=== PATIENT | female | born 1930 | race Caucasian/White ===

== ENCOUNTER 2017-04-15 13:34 | Inpatient (IN) ==
[2017-04-15] MEDS ORDERED: QUELICIN IV ONE (13:39)
[2017-04-15] MEDS ORDERED: AMIDATE IV ONE (13:39)
[2017-04-15] MEDS ORDERED: AMIDATE ONE (13:40)
[2017-04-15] MEDS ORDERED: QUELICIN ONE (13:40)
[2017-04-15] MEDS ORDERED: ASPIRIN PO STA (14:07)
[2017-04-15] MEDS ORDERED: DIPRIVAN 1% 1,000 MG/100 ML BOTTLE IV SCH (14:08)
--- NOTE | 2017-04-15 14:25 | Diag Imaging Result Doc PS360 ---
EXAM: CHEST-PORTABLE HISTORY: UNRESPONSIVE TECHNIQUE: AP portable supine at 1340. Not completed until 1420 COMMENT: The pulmonary vascularity is prominent. There are no abnormal fluid collections. There is borderline cardiomegaly. Compared to 04/26/2015 considering differences in inspiration there has been very little change. IMPRESSION: Possibility of mild pulmonary edema cannot be excluded. Electronically signed by Jarvis Mortensen 04/15/2017 2:23 PM
--- NOTE | 2017-04-15 14:27 | Diag Imaging Result Doc PS360 ---
EXAM: CHEST/ABD TUBE PLACEMENT HISTORY: TUBE PLACEMENT TECHNIQUE: AP supine portable at 1410 COMMENT: There is an endotracheal tube approximately 3 cm above the amada and an NG tube with its tip in the stomach. The inspiration is slightly better than on the previous study of 1340. Otherwise has been no significant change. IMPRESSION: Borderline cardiomegaly and pulmonary vascular engorgement. Questionable interstitial edema. Electronically signed by Jarvis Motrensen 04/15/2017 2:25 PM
[2017-04-15 14:29] LABS: BASO% 0.5 % (0.0-0.8); EOS% 0.9 % (0.0-10.0); HEMATOCRIT 36.2 % (37.0-47.0); HEMOGLOBIN 12.3 g/dL (12.0-16.0); IMM GRAN# 0.27 X1000 (0.0-0.04); IMM GRAN% 2.5 % (0.0-0.5); LYMPH# 3.58 X1000 (1.2-3.4); LYMPH% 33.6 % (20.5-51.1); MANUAL DIFF NEEDED? YES; MCH 36.1 PG (27-31); MCV 106.2 FL (81-99); MONO# 1.07 X1000 (0.11-0.59); MPV 10.4 FL (7.4-10.4); NEUT% 52.5 % (42.2-75.2); PLT 179 X1000 (130-400); RBC 3.41 XMIL (4.2-5.4)
--- NOTE | 2017-04-15 14:29 | EKG Report ---
Test Performed on : 04/15/2017 1:51:15 PM Test Reason : Chest Pain Blood Pressure : / mmHG Vent. Rate : 067 BPM Atrial Rate : 067 BPM P-R Int : 210 ms QRS Dur : 150 ms QT Int : 464 ms P-R-T Axes : 030 -81 011 degrees QTc Int : 490 ms Sinus rhythm. with 1st degree AV block. Right bundle branch block Left anterior fascicular block Bifascicular block Anterolateral infarct (cited on or before 26-JUL-2008) Abnormal ECG When compared with ECG of 22-APR-2015 12:38, Questionable change in initial forces of Anterolateral leads T wave inversion no longer evident in Anterior leads Unconfirmed Result
[2017-04-15 14:35] LABS: INR 1.02; PROTIME 10.7 Seconds (9.2-11.7); PTT 29.2 Seconds (22.0-36.0)
[2017-04-15 14:46] LABS: ALBUMIN 3.9 g/dL (3.5-5.0); CALCIUM 9.4 mg/dL (8.8-10.2); MAGNESIUM 1.9 mg/dL (1.5-2.7); POTASSIUM 4.1 mmol/L (3.5-5.1); TOTAL BILIRUBIN 0.45 mg/dL (0.20-1.00); TOTAL PROTEIN 7.3 g/dL (6.3-8.3)
--- NOTE | 2017-04-15 14:53 | Diag Imaging Result Doc PS360 ---
EXAM: HEAD W/O CONTRAST HISTORY: pain TECHNIQUE: CT of the head without contrast COMMENT: There is generalized cerebral atrophy. There is calcification in the posterior lateral right frontal lobe which was also present at the time the previous study of 04/22/2015. There is extensive periventricular and subcortical white matter lucency in both hemispheres consistent with chronic microvascular disease. This was also present previously. The visualized paranasal sinuses are clear. The calvarium is intact. IMPRESSION: Stable CT of the head. Chronic ischemic microvascular changes. Electronically signed by Jarvis Mortensen 04/15/2017 2:50 PM
[2017-04-15] MEDS ORDERED: LASIX IV ONE (15:12)
--- NOTE | 2017-04-15 15:23 | PROVIDER DOCUMENTATION ---
This chart was entered by Nila Ramirez Scribe, acting as scribe for Enrique Coffey MD. HPI-Cardiopulmonary Arrest - General Chief Complaint: Full Arrest Stated Complaint: SOB Time Seen by Provider: 04/15/17 13:55 Source: EMS Allergies/Adverse Reactions: Allergies Allergy/AdvReac Type Severity Reaction Status Date / Time codeine [Codeine] Allergy Severe NAUSEA/VOMI Verified 04/15/17 14:45 TING meperidine HCl * Allergy Severe NAUSEA/VOMI Verified 04/15/17 14:45 [From Demerol] TING morphine Allergy Severe NAUSEA/VOMI Verified 04/15/17 14:45 TING Penicillins Allergy Severe RASH Verified 04/15/17 14:45 Sulfa (Sulfonamide Allergy Severe RASH Verified 04/15/17 14:45 Antibiotics) [Sulfa(Sulfonamide Antibiotics)] Home Medications: Home Medication List Medication Instructions Recorded Confirmed Last Taken Type Brimonidine 0.15% Ophth Soln 1 drop RIGHT EYE BID 10/21/12 04/15/17 04/21/15 History [Alphagan P 0.15% Ophth Soln] Acetaminophen [Tylenol] 325 mg PO 4XDAY PRN PRN #0 tablet 01/23/14 04/15/17 Unknown Rx Aspirin 81 mg PO MoWeFr #0 chewtab 01/23/14 04/15/17 04/20/15 Rx Calcium Carbonate [Caltrate 600] 600 mg PO DAILY #0 tablet 01/23/14 04/15/1704/30 Rx Carvedilol [Coreg] 25 mg PO BID #0 tablet 01/23/14 04/15/17 04/21/15 Rx Folic Acid 1 mg PO DAILY #0 tablet 01/23/14 04/15/17 04/21/15 Rx Latanoprost 0.005% Oph Soln 0 ml BOTH EYES HS #0 btl 01/23/14 04/15/17 04/21/15 Rx [Xalatan 0.005% Oph Soln] Levothyroxine [Synthroid] 50 microgm PO ACB #0 tablet 01/23/14 04/15/17 Rx Alendronate [Fosamax] 70 mg PO ORDERED 05/21/14 04/15/17 04/15/15 History Buspirone [Buspar] 15 mg PO BID 05/21/14 04/15/17 04/21/15 History Clonidine [Catapres] 0.1 mg PO Q6H PRN PRN 05/21/14 04/15/17 11/26/14 History Multivitamin [Multivitamins] 1 each PO DAILY 05/21/14 04/15/17 04/21/15 History Ubidecarenone [Coenzyme Q10] 100 mg PO BID 05/21/14 04/15/17 04/21/15 History Allopurinol 300 mg PO BID 11/26/14 04/15/17 04/21/15 History Amlodipine [Norvasc] 2.5 mg PO DAILY 11/26/14 04/15/17 04/21/15 History Atorvastatin Calcium [Lipitor] 20 mg PO DAILY 11/26/14 04/15/17 04/21/15 History Clonidine Patch [[id number]-9] 1 patch TD DIRECTED 11/26/14 04/15/17 History Irbesartan 300 mg PO DAILY 11/26/14 04/15/17 04/21/15 History Isosorbide Mononitrate [Isosorbide 30 mg PO QHS 11/26/14 04/15/17 04/21/15 History Mononitrate ER] Quetiapine [Seroquel] 50 mg PO QHS 11/26/14 04/15/17 04/21/15 History [place]-3 Fatty Acids/Fish Oil [Fish 1 each PO DAILY 04/22/15 04/15/17 04/21/15 History Oil 1,000 mg Softgel] Diazepam [Valium] 2 mg PO BID PRN PRN #0 04/26/15 04/15/17 04/21/15 Rx Bisacodyl [Dulcolax] 10 mg PO Q6H PRN PRN 04/15/17 04/15/17 Unknown History Hydrocortisone Acetate [Proctosert 30 mg RC BID 04/15/17 04/15/17 Unknown History Hc] Risperidone [Risperdal] 0.5 mg PO QHS 04/15/17 04/15/17 Unknown History - History of Present Illness-C/P Arrest Initial Comments: Pt is 86 y/o F presents to the ED with cardiopulmonary arrest. EMS states Pt was at lunch and was eating shrimp and got chocked. EMS states Pt was down for 2 minutes and CPR was started on arrival and CPR lasted 3 minutes and EMS states pulse return. EMS removed shrimp from throat. EMS states IO placed in L shoulder and 1 epi was given. Pt was given etomidate at 1347 and succ at 1348. Pt was intubated at 1351. Reason for Code Blue?: full arrest Witnessed arrest?: Yes Bystander CPR?: No CPR initiated before doctor arrival?: Yes Down-time before ACLS?: see above (2 minutes) Initial Findings: no respirations, no pulse Treatment initiated prior to doctor arrival?: Initiated CPR/thumper (CPR), Initiated epinephrine #mg (1) Similar Symptoms Previously?: No Recently seen or treated by another doctor?: No - Pre-hospital Treatment EMS Initial Findings:: no respirations Pre-hospital Treatment: Initiated CPR, Initiated epinephrine Review of Systems - Adult - REVIEW OF SYSTEMS - ADULT Constitutional: reports: no symptoms reported Eyes: reports: no symptoms reported Ears, Nose, Mouth & Throat: reports: no symptoms reported Cardiovascular: reports: no symptoms reported Respiratory: reports: shortness of breath, other (respiratory distress). denies : cough, wheezing Gastrointestinal: reports: no symptoms reported Genitourinary: reports: no symptoms reported Musculoskeletal: reports: no symptoms reported Integumentary: reports: no symptoms reported Neurological: reports: no symptoms reported Psychiatric: reports: no symptoms reported Endocrine: reports: no symptoms reported Hematologic/Lymphatic: reports: no symptoms reported Allergic/Immunologic: reports: no symptoms reported All Other Systems: Reviewed and Negative Past History - Adult - PAST MEDICAL HISTORY-ADULT Review of Records: reports: Nursing Assessment Review, Medications Reviewed, Social history reviewed & non-contributory. Major Childhood Illnesses: reports: denies history Cardiovascular: reports: HTN, hyperlipidemia Respiratory: reports: denies history Gastrointestinal: reports: GERD Obstetrical/Gynecological: reports: denies history Genitourinary: reports: kidney disease Musculoskeletal: reports: arthritis Neurological: reports: dementia, TIA Psychiatric: reports: bipolar Endocrine/Immune: reports: thyroid disorder (thyroid disease) Other Conditions: reports: denies history, other (Lupus) - PRIOR SURGERIES/PROCEDURES Surgical/Procedure History: reports: appendectomy, joint replacement, other ( total hip replacement) - IMMUNIZATION STATUS Childhood Immunizations: See Nurse Assessment Flu Vaccine: See Nurse Assessment - FAMILY HISTORY Family History: reviewed, not pertinent - SOCIAL HISTORY Smoking: quit greater than 1 year, cigarettes Substance Use: alcohol Alcohol Use Frequency: every day Number of drinks per typical drinking period:: 2 drinks Living Situation: family Physical Exam-General - PHYSICAL EXAM-ADULT Initial Vital Signs Reviewed: Yes - CONSTITUTIONAL General Appearance: alert, moderate distress - EYES Eyes: PERRL/EOMI, pink conjunctivae - HEAD, EARS, NOSE, MOUTH & THROAT HENMT: normocephalic/atraumatic, moist mucous membranes, normal ENT inspection - NECK Neck: non-tender, full range of motion, supple, normal inspection - RESPIRATORY Respiratory: chest non-tender, respiratory distress, stridor, retractions, increased rate - CARDIOVASCULAR Cardiovascular: normal peripheral pulses, regular rate, rhythm - GASTROINTESTINAL (ABDOMEN) Abdominal Exam: normal bowel sounds, non tender, soft - LYMPHATIC Lymphatic: no adenopathy - MUSCULOSKELETAL Back Exam: normal inspection, no CVA tenderness, no vertebral tenderness Extremity: normal range of motion, non-tender - SKIN Integumentary: normal color, normal turgor, warm/dry - NEUROLOGIC Neurologic: grossly normal - PSYCHIATRIC Psych/Mental Status: disoriented x 3 Progress - PLAN OF CARE/RESULTS Progress/Plan/Lab Results: Vital Signs - 8 hr 04/15/17 13:43 04/15/17 13:46 04/15/17 13:49 Temperature Pulse Rate 86 77 71 Respiratory Rate 26 H 21 12 Blood Pressure 183/104 154/91 133/79 O2 Sat by Pulse Oximetry 97 99 04/15/17 13:50 04/15/17 13:57 04/15/17 14:00 Temperature Pulse Rate 75 68 69 Respiratory Rate 27 H 11 L 22 Blood Pressure 143/75 119/70 143/79 O2 Sat by Pulse Oximetry 97 99 99 04/15/17 14:05 04/15/17 14:39 04/15/17 14:45 Temperature Pulse Rate 75 69 Respiratory Rate 12 17 Blood Pressure 143/75 126/58 O2 Sat by Pulse Oximetry 98 100 94 L 04/15/17 14:46 04/15/17 15:09 Temperature 98.0 F Pulse Rate 71 65 Respiratory Rate 18 19 Blood Pressure 110/57 91/47 O2 Sat by Pulse Oximetry 93 L 100 Laboratory Results - last 24 hr 04/15/17 04/15/17 04/15/17 13:44 13:44 13:44 WBC 10.67 RBC 3.41 L Hgb 12.3 Hct 36.2 L MCV 106.2 H MCH 36.1 H MCHC 34.0 RDW Std Deviation 13.2 Plt Count 179 MPV 10.4 Immature Gran % (Auto) 2.5 H Neut % (Auto) 52.5 Lymph % (Auto) 33.6 [place] % (Auto) 10.0 H Eos % (Auto) 0.9 Baso % (Auto) 0.5 Immature Gran # (Auto) 0.27 H Neut # (Auto) 5.60 Lymph # (Auto) 3.58 H [place] # (Auto) 1.07 H Eos # (Auto) 0.10 Baso # (Auto) 0.05 Segmented Neutrophils Cancelled Band Neutrophils Cancelled Lymphocytes Cancelled Monocytes Cancelled Eosinophils Cancelled Basophils Cancelled Metamyelocytes Cancelled Myelocytes Cancelled Promyelocytes Cancelled Nucleated RBCs Cancelled Atypical Lymphocytes Cancelled Blast Cells Cancelled Hypochromia Cancelled Vacuolization Cancelled Toxic Granulation Cancelled Dohle Bodies Cancelled Large Platelets Cancelled Polychromasia Cancelled Poikilocytosis Cancelled Basophilic Stippling Cancelled Anisocytosis Cancelled Microcytosis Cancelled Macrocytosis Cancelled Spherocytes Cancelled Sickle Cells Cancelled Target Cells Cancelled Ovalocytes Cancelled Stomatocytes Cancelled [place] Bodies Cancelled Halie Cells Cancelled Unidentified Cells Cancelled Schistocytes Cancelled PT INR PTT (Actin FS) Sodium 136 Potassium 4.1 Chloride 96 L Carbon Dioxide 22 L Anion Gap 18 BUN 26 H Creatinine 1.1 H Estimated GFR/1.73 m2 47 BUN/Creatinine Ratio 24 Glucose 132 H Calculated Osmolality 279 Calcium 9.4 Magnesium 1.9 Total Bilirubin 0.45 AST 38 H ALT 21 Alkaline Phosphatase 102 Creatine Kinase 65 Troponin T Saa-C-Hswkpfafsfr Pept 2412 H Total Protein 7.3 Albumin 3.9 Globulin 3.4 Albumin/Globulin Ratio 1.1 04/15/17 04/15/17 13:44 13:44 WBC RBC Hgb Hct MCV MCH MCHC RDW Std Deviation Plt Count MPV Immature Gran % (Auto) Neut % (Auto) Lymph % (Auto) [place] % (Auto) Eos % (Auto) Baso % (Auto) Immature Gran # (Auto) Neut # (Auto) Lymph # (Auto) [place] # (Auto) Eos # (Auto) Baso # (Auto) Segmented Neutrophils Band Neutrophils Lymphocytes Monocytes Eosinophils Basophils Metamyelocytes Myelocytes Promyelocytes Nucleated RBCs Atypical Lymphocytes Blast Cells Hypochromia Vacuolization Toxic Granulation Dohle Bodies Large Platelets Polychromasia Poikilocytosis Basophilic Stippling Anisocytosis Microcytosis Macrocytosis Spherocytes Sickle Cells Target Cells Ovalocytes Stomatocytes [place] Bodies Halie Cells Unidentified Cells Schistocytes PT 10.7 INR 1.02 PTT (Actin FS) 29.2 Sodium Potassium Chloride Carbon Dioxide Anion Gap BUN Creatinine Estimated GFR/1.73 m2 BUN/Creatinine Ratio Glucose Calculated Osmolality Calcium Magnesium Total Bilirubin AST ALT Alkaline Phosphatase Creatine Kinase Troponin T < 0.010 Aci-W-Cwodgfaboch Pept Total Protein Albumin Globulin Albumin/Globulin Ratio Orders Category Date Time Status Cardiac Monitoring DIRECTED Care 04/15/17 14:07 Active Restraint/Seclusion Initiat NV NOW Care 04/15/17 15:10 Active Saline Loc NOW Care 04/15/17 14:07 Active CHEST-PORTABLE [RAD] Stat Exams 04/15/17 13:38 Completed CHEST/ABD TUBE PLACEMENT [RAD] Stat Exams 04/15/17 13:51 Completed HEAD W/O CONTRAST [CT] Stat Exams 04/15/17 14:09 Completed CBC WITH ELECTRONIC DIFF [HEME] Stat Lab 04/15/17 13:44 Completed CK PROFILE [SP CHEM] Stat Lab 04/15/17 13:44 Completed COMPREHENSIVE METABOLIC PANEL [CHEM] Stat Lab 04/15/17 13:44 Completed MAGNESIUM [CHEM] Stat Lab 04/15/17 13:44 Completed PRO B-NATRIURETIC PEPTIDE Stat Lab 04/15/17 13:44 Completed PROTIME WITH INR [COAG] Stat Lab 04/15/17 13:44 Completed PTT [COAG] Stat Lab 04/15/17 13:44 Completed TROPONIN T Stat Lab 04/15/17 13:44 Completed Aspirin Med 04/15/17 14:07 Discontinued 325 mg PO STAT STA Etomidate [Amidate] Med 04/15/17 13:39 Discontinued 20 mg IV NOW ONE Etomidate [Amidate] Med 04/15/17 13:40 Discontinued 40 mg .ROUTE .STK-MED ONE Furosemide [Lasix] Med 04/15/17 15:12 Once 100 mg IV NOW ONE Propofol [Diprivan 1%] Med 04/15/17 14:08 Active 1,000 mg in 100 ml IV Per Protocol Succinylcholine [Quelicin] Med 04/15/17 13:39 Discontinued 100 mg IV NOW ONE Succinylcholine [Quelicin] Med 04/15/17 13:40 Discontinued 200 mg .ROUTE .STK-MED ONE EKG [EKG] Stat Ther 04/15/17 14:07 Draft Result Diagrams: 04/15/17 13:44 04/15/17 13:44 - EKG 1 Time of EKG reading by physician:: 13:51 EKG Read and Signed by:: Enrique Coffey EKG Interpretation (*Must complete 3 of following elements*): Abnormal ( anterolateral infarct, age undetermined) Rate: 67 Rhythm: sinus rhythm with 1st degree AV block Comments: RBBB; left anterior fascicular block; bifascicular block - XRAY 1 XRAY Study: Chest Impression: Abnormal XRAY Interpretation: possibilty of mild pulmonary edema cannot be excluded 2 XRAY Study: Chest, Abdomen (tube placement) Impression: Abnormal (questionable interstitial) XRAY Interpretation: borderline cardiomegaly and pulmonary vascular engorgement - CT/MRI 1 CT Study: Head Impression: Abnormal CT Results: stable CT of the head; chronic ischemic microvascular changes Procedures - INTUBATION Time of Intubation: 13:51 Airway Evaluation: Copious Secretions Mallampati Class: 3 Intubation Method: orotracheal Equipment: ETT Tube Size (cm): 7.5 Pretreated with 100% Oxygen?: Yes Breath Sounds after Intubation: equal ETT Primary Tube Confirmation: Capnometry CO2 Change, Chest Rise and Fall, Tube placement verified on XRAY, Placement re-confirmed with CXR after reposition Intubation Complications: no complications Vent Settings: See Respiratory Therapy Notes Departure - Departure Date of Disposition Decision: 04/15/17 Time of Disposition Decision: 15:15 DIAGNOSIS: Pulmonary edema, Respiratory distress Disposition: ADMITTED INPATIENT 09 Certified Medical Emergency: Emergent Condition: Critical Additional Freetext Instructions: ED Follow Up Instructions: You have been treated by a care provider in the Emergency Department. These instructions are being provided to you so you can have an understanding of how to care for yourself upon discharge. Upon discharge from the Emergency Department, you are responsible for making arrangements for follow-up care by a physician of your choice. Take all prescribed medications as directed. Return to the Emergency Department immediately for any new or worsening symptoms. You may call the Physician Referral phone number at [phone] to obtain a list of Physicians who are taking new patients. Referrals and Follow-Ups: Sameer Light MD [Primary Care Provider] - - Critical Care Note This patient required my direct & personal management of CC.: Yes Total Time (mins): 90 Critical Care Statement: This patient required my direct personal management to treat or rule out processes, the absence of which, could potentiallly result in sudden, clinically significant life or limb threatening deterioration. Attestation - Physician/ MO Attestation The physician spent face to face time with patient:: Yes Advanced Practice Provider documentation review:: The physician spent face to face time with this patient and agrees with all MLP documentation, treatment, and medical decision making by the MLP. See provider notes for further information. This chart was documented by the indicated scribe, (Nila Ramirez Scribe) and accurately reflects the services I performed and decisions made by , Enrique Coffey MD, as attested by the provider's signature.
[2017-04-15 15:51] LABS: ALLEN TEST YES; BE -1.3 mmoll (-3.0-3.0); BLOOD TYPE ARTERIAL; DRAW SITE L RADIAL; METHB 0.9 % (0.0-1.5); O2(CT) 17.7 mL/dL (15.0-23.0); PCO2(98.6) 35 mmHg (35-45); PO2(98.6) 275 mmHg (60-100); SAMPLE BLOOD; SAO2 98.9 % (95.0-100.0); SRATE 15 BPM; THB 12.4 g/dL (11.5-17.4); TVOL 500 mL; pH(98.6) 7.42 (7.35-7.45)
[2017-04-15 15:53] LABS: MODALITY VENTILATOR
[2017-04-15] MEDS ORDERED: CLINDAMYCIN 300 MG in NS 50 ML IV ONE (16:32)
[2017-04-15] MEDS ORDERED: FLAGYL 500 MG/NS 500 MG/100 ML IVPB IV ONE (16:32)
[2017-04-15] MEDS: DIPRIVAN 1% 1,000 MG/100 ML BOTTLE IV SCH ×2 (20:33→23:47)
--- NOTE | 2017-04-15 21:50 | HISTORY AND PHYSICAL ---
CHIEF COMPLAINT: Cardiac arrest. HISTORY OF PRESENT ILLNESS: This 86-year-old, white female, was out to eat dinner with her family. She was eating some type of shrimp dish and became choked. The family did not immediately realize this, but when they did, performed a Heimlich maneuver which ejected 1 shrimp from her throat, but this did not clear her airway. She continued to have problems and eventually was laid down on the ground. contract post office clerk arrived and were able to remove another shrimp from her airway. They then started IVs and apparently on monitor, her heart had stopped. Once they secured her airway and gave her IV fluids and 1 round of drugs, I believe her heart started back. I do not have the documents in front of me, but gathered this from talking with the patient's family and with the ER doctor earlier today. From the sources I spoke to, they felt that she was only down and/or not breathing on her own for 2-3 minutes. The contract post office clerk luckily were very close by when the call came in. The patient was not intubated in the in the field according to the emergency room physician, but he intubated her later due to airway protection issues. PAST MEDICAL HISTORY: 1. Temporal arteritis and PMR (remote history). 2. 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 3. Degenerative arthritis. 4. Fibrocystic disease of breasts. 5. Hypertension. 6. Osteoporosis. 7. Hyperlipidemia. 8. Chronic right bundle branch block. 9. Bipolar disorder. 10. History of alcoholism. ALLERGIES: Sulfa, penicillin and narcotics. SOCIAL HISTORY: The patient lives in an assisted living situation and today was out with family. She is a nonsmoker. She drinks alcohol regularly, the amount is unknown, but his it has been surmised that she has been an alcoholic for a number of years. FAMILY HISTORY: Noncontributory. REVIEW OF SYSTEMS: Patient is incapable of review of systems. In speaking with the patient's daughter, she had been in good health and good mood for the recent past and had no ongoing complaints. PHYSICAL EXAMINATION: GENERAL: The patient is on propofol, but is not completely sedated. She is in the ICU lying in the bed. She has her eyes open. She does track us around the room. If we bring her attention to us, she does shake her head in affirmation to questions. NECK: Unremarkable. LUNGS: Clear to auscultation in all kidd. There are no wheezes or rales. There are no crackles noted. CARDIOVASCULAR: Regular rhythm at approximately 60 beats per minute. ABDOMEN: Shows bowel sounds are present. EXTREMITIES: No peripheral edema. LABORATORIES: White cell count 10.6, ABG was 742, 35, 275 on the ventilator. Creatinine is 1.1. Glucose 132, proBNP was 2412. ASSESSMENT AND PLAN: 1. The patient will be admitted to the ICU. She will remain on the ventilator overnight. We will titrate her propofol sedation a little higher so that she can get some rest. We will recheck labs and x-rays in the morning. If all is clear and she has not spiked a fever or had any type of downturn, we will attempt extubation. If she seems to have any difficulty, likely will call in a software configuration specialist to help us out. 2. The patient will be placed on Levaquin and Flagyl as antibiotic coverage for aspiration. 3. The patient is on a host of home medications, all of which will be held until she is extubated. We will monitor other parameters and make adjustments as necessary. cc: Sameer Light MD MTDD
[2017-04-15] MEDS: FLAGYL 250 MG/NS 250 MG/50 ML IVPB IV SCH (23:45)
[2017-04-15] MEDS: LEVAQUIN 500 MG/D5W 500 MG/100 ML IVPB IV SCH (23:45)
[2017-04-16 04:53] LABS: ALLEN TEST YES; BLOOD TYPE ARTERIAL; DRAW SITE R RADIAL; METHB 1.1 % (0.0-1.5); O2(CT) 16.7 mL/dL (15.0-23.0); PCO2(98.6) 37 mmHg (35-45); PO2(98.6) 78 mmHg (60-100); SAMPLE BLOOD; SAO2 96.8 % (95.0-100.0); SRATE 15 BPM; THB 12.5 g/dL (11.5-17.4); TVOL 400 mL; pH(98.6) 7.48 (7.35-7.45)
[2017-04-16 04:55] LABS: MODALITY VENTILATOR
[2017-04-16] MEDS: FLAGYL 250 MG/NS 250 MG/50 ML IVPB IV SCH ×4 (05:00→22:55)
[2017-04-16 05:52] LABS: MANUAL DIFF NEEDED? NO
[2017-04-16 06:01] LABS: BASO% 0.2 % (0.0-0.8); EOS# 0.15 X1000 (0.0-0.7); EOS% 1.5 % (0.0-10.0); HEMATOCRIT 31.1 % (37.0-47.0); HEMOGLOBIN 10.7 g/dL (12.0-16.0); LYMPH# 1.01 X1000 (1.2-3.4); LYMPH% 9.8 % (20.5-51.1); MCHC 34.4 g/dL (33-37); MCV 104.7 FL (81-99); MONO# 1.42 X1000 (0.11-0.59); MONO% 13.8 % (1.7-9.3); MPV 10.6 FL (7.4-10.4); NEUT% 74.7 % (42.2-75.2); PLT 135 X1000 (130-400); RBC 2.97 XMIL (4.2-5.4)
[2017-04-16 06:21] LABS: POTASSIUM 3.1 mmol/L (3.5-5.1)
[2017-04-16] MEDS ORDERED: POTASSIUM CHLORIDE 20 MEQ/SWI 20 MEQ/100 ML IVPB IV SCH (07:00)
--- NOTE | 2017-04-16 07:02 | Diag Imaging Result Doc PS360 ---
EXAM: CHEST-PORTABLE HISTORY: ETT TECHNIQUE: Erect AP portable at 0520 COMMENT: There is an endotracheal tube slightly below the thoracic inlet and an NG tube which passes below the diaphragm. The inspiration is less optimal than on 04/15/2017, otherwise has been no appreciable change. IMPRESSION: Stable chest. Electronically signed by Jarvis Mortensen 04/16/2017 6:59 AM
--- NOTE | 2017-04-16 08:30 | PROGRESS NOTE ---
DATE: 04/16/2017 SUBJECTIVE: The patient is sedated and on the ventilator all night and there were no particular problems overnight. OBJECTIVE: 97.4, 56, 15, 132/53, 96% saturated on 40% mechanical ventilation. OBJECTIVE: General: The patient is sedated at the time of my examination. Lungs: Coarse breath sounds in both upper lobes but I do not hear any distinct rales in these areas. Cardiovascular: Regular bradycardia at 60 beats per minute. She appears have a right bundle on the monitor. LABORATORY: White cell count was 10.32, hemoglobin 10.7, hematocrit 31.1. She has a high MCV. ABG from this morning was 7.48, CO2 37, O2 of 78, again 97% saturated on 40% FiO2 ventilator assist control mode. Electrolytes showed a potassium dropping to 3.1, creatinine 1.1. ASSESSMENT AND PLAN: 1. The patient remains sedated on the ventilator. Her chest x-ray this morning did not show any change from admission. She is being treated for aspiration pneumonitis. Although this has not developed clinically or on x-ray. I am going to consult Dr. Hector Jimenez for ventilator management. Hopefully, we can get her off this ventilator today or in the shortest possible time frame. 2. Laboratory from this morning was reasonably good. We will replete her potassium. I have also ordered a CK and troponin for this morning which are not back yet. 3. Hopefully, we can loosen the reins of sedation and see what she can do on her own. I will leave that decision making to the critical care unit nurse. 4. I will speak to the family following my examination and dictation. cc: Sameer Light MD
[2017-04-16] MEDS: DIPRIVAN 1% 1,000 MG/100 ML BOTTLE IV SCH (08:39)
[2017-04-16 08:56] LABS: CK INDEX 1.7 (0.0-2.5); CK-MB 6.91 ng/mL (0.0-5.0)
[2017-04-16] MEDS ORDERED: POTASSIUM CHLORIDE 20 MEQ/SWI 20 MEQ/100 ML IVPB IV ONE (09:00)
--- NOTE | 2017-04-16 09:39 | CONSULTATION ---
DATE OF CONSULTATION: 04/16/2017 CONSULTATION REQUESTED: Pulmonary consultation. REQUESTING PHYSICIAN: Dr. Sameer Light REASON FOR CONSULTATION: Status post cardiopulmonary arrest. HISTORY OF PRESENT ILLNESS: Ms. Willams is an 86-year-old white female, with a 20 pack year history for tobacco (nonsmoker for several years), who was eating with family when she apparently choked. The Heimlich maneuver was performed and patient expelled a shrimp, but her airway was not completely cleared. EMS was called and she did require a short course of CPR by report. The EMS was nearby. Actual times have not been available for review. Additional airway clearance was required. The patient was intubated in the emergency room for airway protection. She may she was following commands according to documentation in the chart. PAST MEDICAL HISTORY: 1. Bipolar disorder. 2. Possible stroke. 3. History of temporal arteritis. 4. History of lupus. 5. Hypertension. 6. Osteoporosis. 7. History of alcoholism. 8. Allergy to sulfa, penicillin and narcotics. SOCIAL HISTORY: Patient lives in assisted living. Prior tobacco use. Chart indicates she drinks at least 1 alcoholic beverage per week. FAMILY HISTORY: Noncontributory. REVIEW OF SYSTEMS: Limited due to current status. PHYSICAL EXAMINATION: General: Reveals an elderly white female, who appears her stated age. When her propofol is discontinued, she does arouse and follows simple commands. Vital Signs: Blood pressure 132/53, heart rate 56, respiration rate 15, oxygen saturation 96%. HEENT: Pupils are equal and reactive. Oropharynx is clear. Neck: Supple. Chest: Reveals occasional rhonchi bilaterally without wheezing or tactile fremitus. Cardiac: Decreased rate regular rhythm. Abdomen: Soft without hepatosplenomegaly. Extremities: Without significant edema. LABORATORIES: Sodium 140, potassium 3.1, chloride 99, bicarbonate 26, BUN 31, creatinine 1.1. Troponin is negative. CK slightly elevated at 395 but CPK index is negative. Chest x-ray on admission yesterday revealed possible mild edema with borderline cardiomegaly. Chest x-ray today has not significantly changed. IMPRESSION: An 86-year-old white female, prior tobacco use, status post cardiopulmonary arrest following airway obstruction due to food. The patient did undergo the Heimlich maneuver along with CPR. Hemodynamically, she is stable. She has had a slight drop in hemoglobin. She appears to be neurologically intact at this juncture. The patient had hypoxemic and hypercapnic respiratory failure associated with a cardiopulmonary event. RECOMMENDATIONS: 1. Spontaneous breathing trial now to assess extubation status. 2. Followup hemoglobin later today to ensure she does not have an unknown bleed, such as hepatic laceration or splenic injury. cc: MD Sameer Barrow MD
[2017-04-16 09:41] LABS: ALLEN TEST NO; BE 4.1 mmoll (-3.0-3.0); BLOOD TYPE ARTERIAL; DRAW SITE R BRACHIAL; METHB 0.7 % (0.0-1.5); O2(CT) 14.5 mL/dL (15.0-23.0); PCO2(98.6) 41 mmHg (35-45); PO2(98.6) 63 mmHg (60-100); SAMPLE BLOOD; SAO2 94.5 % (95.0-100.0); THB 11.1 g/dL (11.5-17.4); pH(98.6) 7.45 (7.35-7.45)
[2017-04-16 09:42] LABS: MODALITY VENTILATOR
[2017-04-16] MEDS ORDERED: OFIRMEV 1000 MG/ISOTONIC SOLN 1,000 MG/100 ML BOTTLE IV ONE (10:45)
--- NOTE | 2017-04-16 11:28 | Diag Imaging Result Doc PS360 ---
EXAM: CHEST-PORTABLE HISTORY: dyspnea TECHNIQUE: AP upright portable at 1119 COMMENT: There is left ventricular enlargement. There is prominence of the central pulmonary vascularity. The endotracheal tube which was previously present on the examination at 0520 is been removed as has the NG tube. Considering differences in technique and inspiration there has been no significant change. The left lower lobe appears clearer as the inspiration is slightly better. IMPRESSION: Cardiomegaly and pulmonary vascular engorgement. Electronically signed by Jarvis Mortensen 04/16/2017 11:26 AM
--- NOTE | 2017-04-16 11:41 | CONSULTATION ---
DATE OF CONSULTATION: 04/16/2017 HISTORY OF PRESENT ILLNESS: An 86-year-old lady, who was admitted with shrimp which put her into respiratory distress and she choked. Continued to have problems. EMT arrived at the scene and were able to remove the shrimp. Once her IV was secured, IV fluids were given. She lost pulse for 2-3 minutes and received a couple doses of epinephrine and CPR was performed. Restored within 4 minute and she was intubated. Today at the time of my examination she was just extubated. She says she feels weak, does not hurt anywhere. History was obtained from the chart. PAST MEDICAL HISTORY: 1. Temporal arteritis. 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 3. Degenerative joint disease. 4. Fibrocystic breast disease. 5. Hypertension. 6. Osteoporosis. 7. Right bundle branch block. 8. Bipolar disorder. 9. History of alcohol abuse. 10. Bipolar depression. ALLERGIES: Allergic to sulfonamides, penicillin and narcotics. SOCIAL HISTORY: Patient lives in the assisted living. FAMILY HISTORY: Noncontributory. REVIEW OF SYSTEMS: At the time, patient is slightly groggy. Does not complain of chest pain. Detailed review of systems could not be obtained. PHYSICAL EXAMINATION: Vital Signs: Blood pressure was 151/71. Cardiovascular System: Normal jugular venous pressure. First and second heart sounds heard. There was no S3 gallop. Respiratory System: Scattered wheeze, guttural sounds. Abdomen: Soft, nontender. Central nervous system: Sedated. Could not assess completely, but she was moving all 4 extremities. HOME MEDICATIONS: 1. Eye drops. 2. Aspirin. 3. Calcium carbonate. 4. Coreg 25 mg p.o. b.i.d. 5. Folic acid. 6. Levothyroxine 50. 7. Clonidine 0.1 p.r.n. 8. Buspirone 15 p.o. b.i.d. 9. Fosamax 70. 10. Avapro 300 mg. 11. Isosorbide mononitrate 30. 12. Allopurinol 300. 13. Atorvastatin 20. 14. Amlodipine 2.5. 15. Seroquel 100. 16. Diazepam. 17. Risperdal. 18. Bisacodyl. LABS AND X-RAYS: 1. Cardiac enzymes: First set of cardiac enzymes were negative. Second set of cardiac enzymes: Troponin was negative and CK was 395 with an MB of 6. 2. Chest x-ray is unremarkable. 3. Electrocardiogram: Normal sinus rhythm, right bundle branch block. ASSESSMENT AND PLAN: Ms. Yamileth Willams is an 86-year-old, lady, who choked while she was eating shrimp. EMT was called. Subsequently had a cardiac arrest requiring cardiopulmonary resuscitation. Per standard protocol, she was intubated and just extubated. From a cardiac standpoint: 1. We will get an echocardiogram to assess cardiac and valvular function. 2. We will get another set of cardiac enzymes. 3. We will plan for a Cardiolite stress test to assess and rule out for ischemia. 4. As far as the etiology is concerned, she choked on the shrimp and probably caused her the arrest. However, she was successfully resuscitated and she was extubated today. Given her age, we need to make sure she does not have any ischemia. We will also make sure that 2 other sets of cardiac enzymes are negative. 5. She has some wheeze. Chest x-ray was unremarkable. We will get a chest x-ray tomorrow to make sure there is no airspace disease as well. 6. For hypertension, we will continue with home medications once she can take tablets by mouth. Thank you for the consult. We will follow hospital course. cc: MD Sameer Harrison MD
[2017-04-16 12:19] LABS: MANUAL DIFF NEEDED? NO
[2017-04-16 12:21] LABS: BASO% 0.2 % (0.0-0.8); EOS# 0.12 X1000 (0.0-0.7); EOS% 0.9 % (0.0-10.0); HEMATOCRIT 34.1 % (37.0-47.0); HEMOGLOBIN 11.8 g/dL (12.0-16.0); IMM GRAN# 0.04 X1000 (0.0-0.04); IMM GRAN% 0.3 % (0.0-0.5); LYMPH# 0.94 X1000 (1.2-3.4); LYMPH% 6.7 % (20.5-51.1); MCH 36.2 PG (27-31); MCHC 34.6 g/dL (33-37); MCV 104.6 FL (81-99); MONO# 1.33 X1000 (0.11-0.59); MONO% 9.5 % (1.7-9.3); MPV 9.9 FL (7.4-10.4); NEUT% 82.4 % (42.2-75.2); PLT 136 X1000 (130-400); RBC 3.26 XMIL (4.2-5.4)
[2017-04-16 13:16] LABS: CK INDEX 1.2 (0.0-2.5); CK-MB 6.8 ng/mL (0.0-5.0)
[2017-04-16] MEDS: OFIRMEV 1000 MG/ISOTONIC SOLN 1,000 MG/100 ML BOTTLE IV PRN ×2 (17:15→22:55)
--- NOTE | 2017-04-16 18:58 | ECHO REPORT ---
ORDER DATE: 04/16/2017 INTERPRETING PHYSICIAN: Dr. Odom REQUESTING PHYSICIAN: CLINICAL INDICATIONS: An 86-year-old female with hypertension, hyperlipidemia, abnormal EKG, cardiac arrest. This study was technically difficult. Parasternal views are very limited. M-MODE MEASUREMENTS: Right ventricle: cm. Left ventricle end diastole: cm. Left ventricle end systole: cm. Posterior wall: cm. Interventricular septum: cm. Left atrium: cm. Aortic root: cm. SUMMARY OF 2-DIMENSIONAL IMAGING: The left ventricle shows hyperdynamic contractility. Ejection fraction appears to be in the order of 75-80%. No wall motion abnormality is noted. The right ventricle is not dilated. The aortic valve is calcified and it showed restricted opening. Continuous wave Doppler across this valve shows a maximum gradient of 37 mmHg, mean gradient 20 mmHg. Color flow mapping shows a mild degree of regurgitation. This would suggest a itnp-yj-bjzuptms degree of aortic stenosis. The mitral annulus shows dense calcification. Leaflets of the mitral valve are limited or restricted. They are calcified. The maximum gradient across the mitral valve is 28 mmHg, mean gradient is 12 mmHg. The valve area of the mitral valve is about 1.1 cm squared, suggesting moderate mitral stenosis. Color flow mapping of the mitral valve indicates a svzo-nu-iijwygbk degree of regurgitation. The tricuspid valve shows a fkcx-un-hnpikmsw degree of regurgitation. Pulmonary pressure estimated to be somewhere in the range of 56 mmHg. The pulmonic valve was not well visualized. There is no pericardial effusion, masses or thrombus. IMPRESSION: In summary, this echocardiogram is limited. The left ventricular ejection fraction is hyperdynamic. Ejection fraction 75-80%. There is a moderate degree of mitral stenosis with a wiht-td-osaynibh degree of mitral regurgitation. Mitral valve area 1.1 cm squared. There is also a moderate degree of aortic stenosis with a mild degree of aortic regurgitation. The mean gradient is 28 mmHg. There is mild pulmonary hypertension estimated at 53 mmHg. No pericardial effusion noted. Clinical correlation is strongly recommended. cc: MD Jennifer Hebert PA Timothy P. Weirich, MD
[2017-04-16 20:23] LABS: CK-MB 5.42 ng/mL (0.0-5.0)
[2017-04-16] MEDS: LEVAQUIN 500 MG/D5W 500 MG/100 ML IVPB IV SCH (22:55)
[2017-04-17] MEDS: OFIRMEV 1000 MG/ISOTONIC SOLN 1,000 MG/100 ML BOTTLE IV PRN ×2 (04:37→17:09)
[2017-04-17] MEDS: FLAGYL 250 MG/NS 250 MG/50 ML IVPB IV SCH ×3 (04:56→17:09)
[2017-04-17] MEDS ORDERED: TYLENOL PO PRN (09:16)
[2017-04-17] MEDS: ASPIRIN PO SCH (09:33)
[2017-04-17] MEDS: NORVASC PO SCH (09:34)
[2017-04-17] MEDS: ZYLOPRIM PO SCH (09:34)
[2017-04-17] MEDS: COREG PO SCH ×2 (09:34→21:30)
--- NOTE | 2017-04-17 09:40 | PROGRESS NOTE ---
DATE: 04/17/2017 SUBJECTIVE: The patient is sitting in the bed. She is on a humidified oxygen mask although she is not desaturated. It was reported to me by the nursing staff that she had some rales this morning and had a deep suction and seems to be better. The rales seemed to be more consistent with upper airway noise. The patient states that she is doing fine. She is responding a little bit more slowly than her baseline but is otherwise in reasonable shape. Further workup from the cardiology consult due to elevated CK and troponin are going to follow today. OBJECTIVE: Vital Signs: Temperature 98.68, pulse 81, respirations 24, blood pressure 148/66. General: She is a well-developed, white female, in no acute distress. Lungs: The patient's lung kidd are clear to auscultation. Heart: Her cardiovascular exam shows a regular rhythm with what appears to be a right bundle or at least interventricular conduction delay on the monitor. She is in no distress. She is alert, oriented, conversive and appropriate although she is responding a little bit more slowly and her voice is weak compared to her baseline. LABORATORY: White cell count yesterday was 14,000. Her last measured CK is 558 with a troponin 0.018. ASSESSMENT AND PLAN: 1. The patient has been seen by cardiology. She is likely stable for the floor CICU, but will need some pretty high-intensity attention. In that regard, I think I would prefer CICU to the floor. There is a perfusion scan that is pending but there was some difficulty in possibly getting her positioned on the table for a stable scan, and it is up in the air whether that will get done today or not. The remainder of her vital signs and other parameters are very good. I do not have a chest x-ray from this morning. 2. I plan to reintroduce the patient's oral medications and we will move forward from there upon recommendations of our consultants. cc: Sameer Light MD
--- NOTE | 2017-04-17 11:14 | EKG Report ---
Test Performed on : 04/17/2017 05:51:24 AM Test Reason : cardiac arrest Blood Pressure : / mmHG Vent. Rate : 081 BPM Atrial Rate : 081 BPM P-R Int : 252 ms QRS Dur : 158 ms QT Int : 454 ms P-R-T Axes : 058 -81 027 degrees QTc Int : 527 ms Sinus rhythm. with 1st degree AV block. Left axis deviation Right bundle branch block Inferior infarct , age undetermined Anterolateral infarct (cited on or before 26-JUL-2008) Abnormal ECG When compared with ECG of 15-APR-2017 13:51, Left anterior fascicular block is no longer present Questionable change in initial forces of Lateral leads Confirmed by Damir CHANDLER, Darvin Espino ([id number]) on 04/18/2017 1:15:30 PM
--- NOTE | 2017-04-17 13:11 | Diag Imaging Result Doc PS360 ---
CHEST-PORTABLE - 04/17/2017 INDICATION: Resp Failure TECHNIQUE: COMPARISON: 04/16/2017 FINDINGS: There is significant worsening alveolar infiltrate throughout the right upper lobe. There is some worsening infiltrate at the right base as well. Stable cardiomegaly. Pulmonary vascularity is grossly normal. No pneumothorax or significant effusion. IMPRESSION: 1. Worsening alveolar infiltrates throughout the right lung concerning for pneumonia or aspiration. 2. Cardiomegaly. Electronically signed by Alfredo Bruno 04/17/2017 1:08 PM
[2017-04-17] MEDS ORDERED: NS 500 ML IV ONE (17:29)
[2017-04-17] MEDS: NS 1,000 ML IV SCH (18:00)
[2017-04-17] MEDS: BUSPAR PO SCH (21:30)
[2017-04-17] MEDS: LIPITOR PO SCH (21:30)
[2017-04-18] MEDS: OFIRMEV 1000 MG/ISOTONIC SOLN 1,000 MG/100 ML BOTTLE IV PRN ×3 (02:31→23:33)
[2017-04-18] MEDS: FLAGYL 250 MG/NS 250 MG/50 ML IVPB IV SCH ×4 (02:32→20:17)
[2017-04-18] MEDS: LEVAQUIN 500 MG/D5W 500 MG/100 ML IVPB IV SCH ×2 (02:32→23:21)
[2017-04-18] MEDS: NS 1,000 ML IV SCH (03:16)
[2017-04-18 06:07] LABS: MANUAL DIFF NEEDED? NO
[2017-04-18] MEDS: SYNTHROID PO SCH (06:17)
[2017-04-18 06:41] LABS: BASO% 0.1 % (0.0-0.8); EOS# 0.02 X1000 (0.0-0.7); EOS% 0.2 % (0.0-10.0); HEMATOCRIT 31.5 % (37.0-47.0); HEMOGLOBIN 10.8 g/dL (12.0-16.0); IMM GRAN# 0.03 X1000 (0.0-0.04); IMM GRAN% 0.2 % (0.0-0.5); LYMPH% 7.7 % (20.5-51.1); MCHC 34.3 g/dL (33-37); MONO# 1.59 X1000 (0.11-0.59); MONO% 12.3 % (1.7-9.3); MPV 10.8 FL (7.4-10.4); NEUT% 79.5 % (42.2-75.2); PLT 141 X1000 (130-400)
[2017-04-18 07:24] LABS: CALCIUM 7.9 mg/dL (8.8-10.2); MAGNESIUM 1.9 mg/dL (1.5-2.7); POTASSIUM 3.4 mmol/L (3.5-5.1)
--- NOTE | 2017-04-18 08:29 | Diag Imaging Result Doc PS360 ---
EXAM: CHEST-PORTABLE INDICATION: abnormal exam TECHNIQUE: One view COMPARISON: None. FINDINGS: The patient is rotated toward the right. The infiltrate at the right upper lung zone is probably stable to marginally improved given differences in rotation. The right basilar infiltrate is approximately stable. No definite new consolidations are appreciated. Cardiac silhouette is stable. IMPRESSION: Approximately stable right lung infiltrates given differences in positioning. Electronically signed by Sebastián Lopez 04/18/2017 8:27 AM
[2017-04-18] MEDS: COREG PO SCH ×2 (09:10→20:15)
[2017-04-18] MEDS: BUSPAR PO SCH ×2 (09:11→20:16)
[2017-04-18] MEDS: NORVASC PO SCH (09:18)
[2017-04-18] MEDS: ZYLOPRIM PO SCH (09:20)
[2017-04-18] MEDS ORDERED: LASIX IV ONE (09:35)
--- NOTE | 2017-04-18 12:10 | PROGRESS NOTE ---
DATE: 04/18/2017 SUBJECTIVE: Ms. Willams reports she is somewhat short of breath. She is not particularly verbal this morning. She nods her heat appropriately to questioning. PHYSICAL EXAMINATION: Vital signs: She is afebrile. Heart rate of 80. Blood pressure is 140/65. General: She is in no acute distress. Cardiovascular: She sounds to be in a regular rate and rhythm. She has a 2/6 systolic murmur that seems holosystolic and is best heard at the left lower sternal border. She has no lower extremity edema. Chest: Exam sounds relatively clear, no increased work of breathing. She has poor inspiratory effort. Abdomen: Soft, nontender, nondistended. She has no obvious organomegaly. PERTINENT DATA: White count is 12.9, hematocrit is 31.5. Her platelet count is 141. Her sodium is 139, potassium is 3.4, BUN is 50, creatinine is 1.8. BUN and creatinine are up from 31 and 1.1 yesterday. ASSESSMENT: Status post cardiac arrest secondary to aspiration event and choking. PLAN: Her renal function appears somewhat worsened today. Overall, her I's and O's appear positive roughly 500 mL or so. Her chest x-ray does not appear to be consistent with pulmonary edema. She does have some echo findings consistent with mitral stenosis, mitral regurgitation, and moderate aortic stenosis, but I do not believe these are clinically significant at this time. Her ejection fraction appears normal. Tentative plans are for myocardial perfusion imaging on Thursday per Dr. Mccabe's recommendations. I have no acute recommendations presently. cc: MD Sameer Johnston MD
[2017-04-18] MEDS: D5 1/2 NS 1,000 ML IV SCH ×2 (12:31→20:18)
[2017-04-18] MEDS: CLINDAMYCIN 600 MG/NS 600 MG/50 ML IVPB IV SCH ×2 (12:31→20:16)
[2017-04-18] MEDS: LIPITOR PO SCH (20:15)
[2017-04-19] MEDS: FLAGYL 250 MG/NS 250 MG/50 ML IVPB IV SCH ×4 (03:24→21:10)
[2017-04-19] MEDS: CLINDAMYCIN 600 MG/NS 600 MG/50 ML IVPB IV SCH ×3 (04:24→21:45)
[2017-04-19 04:27] LABS: ALLEN TEST YES; BE -3.3 mmoll (-3.0-3.0); BLOOD TYPE ARTERIAL; DRAW SITE R RADIAL; METHB 1.1 % (0.0-1.5); O2(CT) 17.1 mL/dL (15.0-23.0); PCO2(98.6) 40 mmHg (35-45); PO2(98.6) 104 mmHg (60-100); SAMPLE BLOOD; SAO2 98.3 % (95.0-100.0); THB 12.5 g/dL (11.5-17.4); pH(98.6) 7.35 (7.35-7.45)
[2017-04-19 04:29] LABS: MODALITY BI PAP
[2017-04-19 05:50] LABS: ALBUMIN 2.7 g/dL (3.5-5.0); CALCIUM 7.4 mg/dL (8.8-10.2); MAGNESIUM 1.9 mg/dL (1.5-2.7); POTASSIUM 3.2 mmol/L (3.5-5.1); TOTAL BILIRUBIN 0.4 mg/dL (0.20-1.00); TOTAL PROTEIN 5.6 g/dL (6.3-8.3)
[2017-04-19] MEDS: SYNTHROID PO SCH (07:25)
--- NOTE | 2017-04-19 08:14 | Diag Imaging Result Doc PS360 ---
EXAM: CHEST-PORTABLE INDICATION: abnormal exam TECHNIQUE: One view COMPARISON: 04/18/2017 FINDINGS: The right upper lung zone infiltrate appears somewhat less prominent than the previous study. The right basilar infiltrate is essentially stable. No new consolidations are appreciated. There is suggestion of a right pleural fluid collection that may be slightly larger than the previous study. Cardiac silhouette is stable. IMPRESSION: 1.Probably marginal improvement of the mild right upper lobe infiltrate but stable right basilar infiltrate. 2.Likely slight increase in the small right pleural effusion. Electronically signed by Sebastián Lopez 04/19/2017 8:11 AM
[2017-04-19] MEDS: COREG PO SCH ×2 (09:44→21:09)
[2017-04-19] MEDS: BUSPAR PO SCH ×2 (09:45→21:08)
[2017-04-19] MEDS: NORVASC PO SCH (09:45)
[2017-04-19] MEDS: ZYLOPRIM PO SCH (09:46)
[2017-04-19] MEDS ORDERED: LASIX IV ONE (10:06)
[2017-04-19] MEDS: POTASSIUM CHLORIDE 20 MEQ/SWI 20 MEQ/100 ML IVPB IV SCH ×2 (10:36→13:14)
--- NOTE | 2017-04-19 10:59 | PROGRESS NOTE ---
DATE: 04/19/2017 SUBJECTIVE: The patient apparently had a rough time overnight with her breathing. Her oxygen saturation was lower and she is on a nonrebreather. They have had to do some NT suction to help clear secretions. She generally is not swallowing well. She generally starts coughing when she is swallowing. I had a long talk with the patient's daughter and son-in-law. OBJECTIVE: Vital Signs: 99.4, 65, 14, 120/53. Patient is 96-99% saturated on 100% nonrebreather. Physical Examination: General: Patient's eyes are open and she is awake. She will respond to questions and seems to comprehend certain aspects of her treatment but does not have any memory of recent events. She is unclear on whether she would like to be put back on the ventilator if necessary. I do not think she understands with that is. Her 2 children have dual power of attorney general and unfortunately, they are in disagreement as to whether the patient should go back on the ventilator or not. The patient appears to have paradoxical diaphragmatic movement and has a rattly insufficient cough which sounds very wet. Lungs: Examination of the lungs did not reveal any overt active wheezing or rales in the right upper lobe. Most of the noise is upper airway in nature. Cardiovascular: Irregular at approximately 70 beats per minute at the time of my examination. Extremities: Showed no peripheral edema. Neurological: From a neurological standpoint, as stated, the patient is awake. She is alert. She is responsive. She is generally appropriate but seems to lack some insight into the gravity of her position. Laboratory: ABG 7.35, PC02 of 40, PO2 104, 98% saturated on 60% FiO2, BiPAP at 16 and 5. Potassium is 3.2, BUN is 57, creatinine 1.9. ASSESSMENT AND PLAN: 1. The patient's respiratory status is tenuous. The family is in disagreement as to whether she should be put back on the ventilator should that become necessary. It is my feeling that she will continue to spiral downhill and it is a pretty good likelihood that she will suffer respiratory failure which would be catastrophic in the event that we do not put her back on the ventilator. The patient's daughter is clearly not in favor of putting her on the ventilator and the patient's son apparently is in favor. 2. Due to positive fluid balance over the last couple days, I am going to give her another small dose of Lasix to see if we can stimulate some diuresis as I am sure this is contributing a little bit to the problems. I think her primary problem is inability to protect her airway and repeated insults to the airway and right upper lobe causing a pneumonitis. We will continue antibiotics and check laboratories again in the morning. 3. The patient's cardiovascular status has still not been completely resolved to the workup. She still has not had a Lexiscan. Echocardiogram at the time of admission showed good ejection fraction and valve function. 4. The patient's swallowing difficulty and overall neurological status begs to question of whether she suffered a stroke at the time of her arrest. It would be nice to be able to get a CT scan, but with her tenuous respiratory status, I do not feel comfortable putting her on the CT table to find that out. We will defer further workup on that until she has a more stable respiratory status. 5. The patient's acute decompensation of her renal function will continue to be followed. She did have a fairly marked could fluid balance which was positive over the last 2 days. She has not responded to diuretics, and BUN and creatinine are climbing. We will continue to monitor. cc: Sameer Light MD
[2017-04-19] MEDS: DUONEB (A & A) INH PRN ×3 (11:03→19:48)
[2017-04-19] MEDS: CLINIMIX E 4.25%-5% SOLUTION 1,000 ML IV SCH (13:00)
--- NOTE | 2017-04-19 13:27 | PROGRESS NOTE ---
DATE: 04/19/2017 SUBJECTIVE: Ms. Willams seems to have a clinical deterioration since yesterday. Her respiratory status has worsened and she is currently on non-rebreather. OBJECTIVE: Vital Signs: She has been afebrile. Her heart rate presently is in the 60s to 70s and her blood pressure is 128/53. General: She is in no acute distress. She is not really responding to any verbal stimuli or mild physical stimuli. Cardiovascular: She sounds to be in a regular rate and rhythm. I do not hear any murmurs. Chest: Has coarse breath sounds bilaterally but more severely course on the right side. She has no increased work of breathing. Abdomen: Soft, nontender, nondistended. No obvious organomegaly. PERTINENT DATA: She has an ABG today showing a pH of 7.35, pCO2 of 40, PO2 of 104. That gives her an AA gradient of 274 which is up from 171 yesterday. Her sodium is 137, potassium 3.2. Her BUN is 57 with a creatinine of 1.9 which is roughly stable from yesterday and seems to be above her baseline. She had a chest x-ray which demonstrated what appeared to be marginal improvement of the mild right upper lobe infiltrate and stable right basilar infiltrate and a possible small increase in the small right pleural effusion. ASSESSMENT: Status post cardiac arrest. Probably likely secondary to an aspiration event that she incurred. PLAN: She continues to deteriorate clinically. She does not seem to have reason to deteriorate from a respiratory standpoint from volume overload. Her EF is normal and her chest x-ray is not suggesting pulmonary edema. Her echo showed a normal EF. It does not appear that she is clinically stable enough to have a nuclear scan and I do not feel that she had an ischemic event resulting in her cardiac arrest from the historical findings. For now, we will continue to follow along. I will discontinue the order for the stress test in the morning as clinically she is not able to follow through with that. cc: MD Sameer Johnston MD
[2017-04-19] MEDS ORDERED: CETACAINE SPRAY ONE (15:58)
[2017-04-19] MEDS: LIPITOR PO SCH (21:08)
[2017-04-19] MEDS: LEVAQUIN 500 MG/D5W 500 MG/100 ML IVPB IV SCH (23:15)
[2017-04-20] MEDS: CLINIMIX E 4.25%-5% SOLUTION 1,000 ML IV SCH ×2 (02:10→13:59)
[2017-04-20] MEDS: FLAGYL 250 MG/NS 250 MG/50 ML IVPB IV SCH ×4 (03:12→20:24)
[2017-04-20] MEDS: DUONEB (A & A) INH PRN ×5 (07:44→22:42)
--- NOTE | 2017-04-20 08:04 | Diag Imaging Result Doc PS360 ---
CHEST-PORTABLE - 04/20/2017 INDICATION: aspiration pneumonitis TECHNIQUE: COMPARISON: 04/19/2017 FINDINGS: There is slight worsening infiltrate at the right upper lobe. Otherwise diffuse infiltrate throughout the right lung. Stable cardiomegaly. There are pleural effusions bilaterally. These appear stable from prior. IMPRESSION: Slight worsening infiltrate or atelectasis at the right upper lobe. Other findings are stable from prior. Electronically signed by Alfredo Bruno 04/20/2017 8:01 AM
[2017-04-20 08:06] LABS: ALLEN TEST YES; BE -2.6 mmoll (-3.0-3.0); BLOOD TYPE ARTERIAL; DRAW SITE R RADIAL; PCO2(98.6) 43 mmHg (35-45); PO2(98.6) 120 mmHg (60-100); SAMPLE BLOOD; pH(98.6) 7.34 (7.35-7.45)
[2017-04-20 08:10] LABS: BASO% 0.2 % (0.0-0.8); EOS# 0.16 X1000 (0.0-0.7); EOS% 1.3 % (0.0-10.0); HEMATOCRIT 28.9 % (37.0-47.0); IMM GRAN# 0.06 X1000 (0.0-0.04); IMM GRAN% 0.5 % (0.0-0.5); LYMPH# 1.19 X1000 (1.2-3.4); LYMPH% 9.6 % (20.5-51.1); MANUAL DIFF NEEDED? YES; MCH 36.5 PG (27-31); MCHC 34.6 g/dL (33-37); MCV 105.5 FL (81-99); MONO# 1.87 X1000 (0.11-0.59); MONO% 15.1 % (1.7-9.3); MPV 10.9 FL (7.4-10.4); NEUT% 73.3 % (42.2-75.2); PLT 175 X1000 (130-400); RBC 2.74 XMIL (4.2-5.4)
[2017-04-20 08:20] LABS: ALBUMIN 2.6 g/dL (3.5-5.0); CALCIUM 7.9 mg/dL (8.8-10.2); POTASSIUM 4.6 mmol/L (3.5-5.1); TOTAL BILIRUBIN 0.33 mg/dL (0.20-1.00); TOTAL PROTEIN 5.7 g/dL (6.3-8.3)
[2017-04-20 08:28] LABS: EOS 4 % (1-10); LYMPHS 12 % (21-51); MONO 16 % (1-9)
[2017-04-20] MEDS: NORVASC PO SCH (08:46)
[2017-04-20] MEDS: ZYLOPRIM PO SCH (08:47)
[2017-04-20] MEDS: ASPIRIN PO SCH (08:47)
[2017-04-20] MEDS: BUSPAR PO SCH ×2 (08:47→20:24)
[2017-04-20] MEDS: COREG PO SCH ×2 (08:47→20:24)
[2017-04-20] MEDS: SYNTHROID PO SCH (09:19)
[2017-04-20] MEDS: CLINDAMYCIN 600 MG/NS 600 MG/50 ML IVPB IV SCH ×3 (09:19→20:24)
[2017-04-20 09:43] LABS: MODALITY BI PAP
--- NOTE | 2017-04-20 09:52 | PROGRESS NOTE ---
DATE: 04/20/2017 SUBJECTIVE: The patient is on BiPAP and sleeping. I spoke with her son, Newton. Overnight, there has been no significant downturn. She has been relatively comfortable on the BiPAP, oxygenating well, and there were no other complaints voiced by family members and no other concerns voiced by the nursing staff. OBJECTIVE: Vital Signs: 99.2, 74, 13, 145/58. She is 100% saturated on BiPAP at 100% FiO2 and a pressure of 16/5. Ins and Outs: Positive 635. Physical Examination: Lungs: Patient's lungs are clear. There is no wheezing. Her work of breathing appears to be less. Cardiovascular: Regular at 73. Extremities: Show no peripheral edema. Neurologic: I did not wake the patient to check her mental status as I wanted her to rest. Laboratories: White cell count is 12.4, hematocrit 28.9. For some reason, I do not have an ABG from this morning. BUN is elevated at 73, creatinine 1.7, blood sugar 118. ASSESSMENT AND PLAN: 1. The patient's aspiration pneumonitis continues. There has really been no significant change in the x-ray in about 3 days, as I see it. She is oxygenating well on the BiPAP and had no significant downturn. We will continue this therapeutic mode and antibiotics. 2. In several discussions with family members yesterday, I think it was decided that we would avoid reintubation and so we made her a no code level 2. 3. The patient's renal function continues to have elevation in BUN somewhat out of proportion to her creatinine level. Fluid balance from yesterday was acceptable and I plan to make no changes in that regard. 4. Cardiology workup will continue as practical. cc: Sameer Light MD
[2017-04-20] MEDS: OFIRMEV 1000 MG/ISOTONIC SOLN 1,000 MG/100 ML BOTTLE IV PRN (20:22)
[2017-04-20] MEDS: LIPITOR PO SCH (20:24)
[2017-04-20] MEDS: LEVAQUIN 500 MG/D5W 500 MG/100 ML IVPB IV SCH (23:01)
[2017-04-21] MEDS: FLAGYL 250 MG/NS 250 MG/50 ML IVPB IV SCH ×4 (02:16→20:17)
[2017-04-21] MEDS: CLINIMIX E 4.25%-5% SOLUTION 1,000 ML IV SCH ×2 (02:16→16:43)
[2017-04-21] MEDS: CLINDAMYCIN 600 MG/NS 600 MG/50 ML IVPB IV SCH ×3 (04:24→20:17)
[2017-04-21] MEDS: DILAUDID IV PRN ×3 (05:04→15:56)
[2017-04-21] MEDS: OFIRMEV 1000 MG/ISOTONIC SOLN 1,000 MG/100 ML BOTTLE IV PRN (05:04)
[2017-04-21] MEDS: SYNTHROID PO SCH (06:00)
[2017-04-21] MEDS: DUONEB (A & A) INH PRN ×4 (07:50→23:07)
[2017-04-21] MEDS ORDERED: LASIX IV ONE (08:17)
[2017-04-21] MEDS: COREG PO SCH ×2 (08:22→20:17)
[2017-04-21] MEDS: NORVASC PO SCH (08:22)
[2017-04-21] MEDS: ZYLOPRIM PO SCH (08:23)
[2017-04-21] MEDS: BUSPAR PO SCH ×2 (08:23→20:16)
--- NOTE | 2017-04-21 08:50 | PROGRESS NOTE ---
DATE: 04/21/2017 SUBJECTIVE: There was no family present this morning during my exam. Nurse's report was favorable. She had a trial of a face mask yesterday and did quite well but went back on the BiPAP for comfort. She does not seem to be struggling to breathe according to the nurse. OBJECTIVE: Vital Signs: Temperature 97.4 with a T-max of 100 degrees, blood pressure 153/54, 70, 12. She is 94% saturated on 60% FiO2, BiPAP at 16/5. Fluid balance positive 1 L. That makes her positive for about 5 L for the last 3 days. Physical Examination: Lungs: The respiratory therapist's report states that she has rhonchi. I find her lungs to be generally clear with the exception of some upper airway noise which is heard better over the upper chest and into the neck. Her lung kidd are generally clear. She is not tachypneic. There was no wheezing that I could detect. Cardiovascular: Regular at 70. Extremities: She has swelling in the right upper extremity and in some in the dependent areas of her body. She has swelling where the BiPAP has been pressing around her face. Laboratories: Today was a laboratory holiday. ASSESSMENT/PLAN: 1. Patient's aspiration pneumonitis continues. I think that we are just going to have to let this play out. Clearly, her work of breathing is decreased while she was on the BiPAP but I think efforts to wean her back to aerosol face mask appear to be proceeding well. We will continue antibiotics, although the pharmacy recommended reduction in the Levaquin due to kidney function. 2. The patient's electrolytes and ABG along with a chest x-ray will be checked again in the morning. 3. The patient is a [id number] level 2. 4. We will monitor the patient's urine output but with the 5 L positive fluid balance, I have given her a tiny dose of Lasix this morning to try and equilibrate this. We may re-dose this as the day proceeds. 5. There was no family present for discussion. We will try and contact them later. cc: Sameer Light MD
[2017-04-21] MEDS ORDERED: BLISTEX MEDICATED BERRY LIP BALM TOP ONE (14:48)
[2017-04-21] MEDS: LIPITOR PO SCH (20:17)
[2017-04-21] MEDS: LEVAQUIN 250 MG/D5W 250 MG/50 ML IVPB IV SCH (23:05)
[2017-04-22] MEDS: FLAGYL 250 MG/NS 250 MG/50 ML IVPB IV SCH ×4 (02:17→20:12)
[2017-04-22] MEDS: DUONEB (A & A) INH PRN ×5 (03:55→23:16)
[2017-04-22 04:36] LABS: ALLEN TEST YES; BLOOD TYPE ARTERIAL; DRAW SITE R RADIAL; METHB 1.2 % (0.0-1.5); O2(CT) 21.4 mL/dL (15.0-23.0); PCO2(98.6) 43 mmHg (35-45); PO2(98.6) 70 mmHg (60-100); SAMPLE BLOOD; SAO2 94.6 % (95.0-100.0); THB 16.4 g/dL (11.5-17.4); pH(98.6) 7.35 (7.35-7.45)
[2017-04-22 04:37] LABS: MODALITY BI PAP
[2017-04-22] MEDS: CLINDAMYCIN 600 MG/NS 600 MG/50 ML IVPB IV SCH ×3 (04:37→20:12)
[2017-04-22] MEDS: CLINIMIX E 4.25%-5% SOLUTION 1,000 ML IV SCH ×3 (04:38→23:32)
[2017-04-22] MEDS: SYNTHROID PO SCH (06:07)
[2017-04-22 06:35] LABS: BASO% 0.3 % (0.0-0.8); EOS# 0.18 X1000 (0.0-0.7); EOS% 1.4 % (0.0-10.0); HEMATOCRIT 32.1 % (37.0-47.0); HEMOGLOBIN 10.9 g/dL (12.0-16.0); IMM GRAN# 0.12 X1000 (0.0-0.04); LYMPH# 1.19 X1000 (1.2-3.4); LYMPH% 9.4 % (20.5-51.1); MANUAL DIFF NEEDED? YES; MCH 35.5 PG (27-31); MCV 104.6 FL (81-99); MONO# 2.32 X1000 (0.11-0.59); MONO% 18.4 % (1.7-9.3); MPV 9.8 FL (7.4-10.4); NEUT% 69.5 % (42.2-75.2); PLT 189 X1000 (130-400); RBC 3.07 XMIL (4.2-5.4)
[2017-04-22 07:16] LABS: CALCIUM 9.3 mg/dL (8.8-10.2)
--- NOTE | 2017-04-22 07:21 | Diag Imaging Result Doc PS360 ---
CHEST-PORTABLE - 04/22/2017 INDICATION: aspiration pneumonitis TECHNIQUE: COMPARISON: 04/20/2017 FINDINGS: There is slight worsening layering hazy opacity throughout the right lung suggesting a pleural effusion. Stable cardiomegaly. Worsening multilobar infiltrates on the right. There is worsening atelectasis/consolidation at the left lung base as well. IMPRESSION: Worsening from prior. Electronically signed by Alfredo Bruno 04/22/2017 7:19 AM
[2017-04-22 07:38] LABS: EOS 1 % (1-10); LYMPHS 8 % (21-51); MONO 10 % (1-9)
[2017-04-22] MEDS: NORVASC PO SCH (08:24)
[2017-04-22] MEDS: BUSPAR PO SCH ×2 (08:25→20:19)
[2017-04-22] MEDS: COREG PO SCH ×2 (08:25→20:20)
[2017-04-22] MEDS: ASPIRIN PO SCH (08:30)
[2017-04-22] MEDS ORDERED: LASIX IV ONE (08:48)
[2017-04-22] MEDS: ZYLOPRIM PO SCH (09:13)
--- NOTE | 2017-04-22 09:18 | PROGRESS NOTE ---
DATE: 04/22/2017 SUBJECTIVE: The patient is asleep in the bed. There is no family present. No concerns were expressed by the nurse. She has been stable overnight. OBJECTIVE: Vital Signs: Temperature 97.5, pulse 86, respiratory rate is 18, blood pressure is 142/50. Fluid balance -430. PHYSICAL EXAMINATION: The patient seemed to have a significant air leak in her BiPAP mask. She is asleep. I did not wake her. The patient's lungs have bilateral crackles and some paradoxical chest wall movement at times which is off time from the breathing apparatus. Cardiovascular: Regular at 80. Extremities: The patient's legs have no edema. Both arms are markedly swollen due to IV infiltration or edema. LABORATORY: White cell count is 12.6, hematocrit 32. ABG is 7.35, 43, 70, and 94.6% saturated on 70% BiPAP at 16/5. Serum electrolytes show a bicarb of 21. BUN still elevated at 75 and creatinine down to 1.0. ASSESSMENT AND PLAN: 1. Chest x-ray today had a commentary from the radiologist that there is likely a pleural effusion. Given her fairly large positive fluid balance over the last week, this is entirely likely. I plan to dose her with Lasix again today and monitor fluid balance. 2. The patient will remain on antibiotics for aspiration pneumonitis. She will remain on BiPAP, although we need to make an adjustment to the mask. 3. The patient's elevated BUN remains in issue. The reduction in her serum creatinine is rather inexplicable overnight and I wonder if this is lab error. No family was present to discuss patient's condition. I will try and contact them later. cc: Sameer Light MD
[2017-04-22 09:39] LABS: INR 1.2; PROTIME 12.7 Seconds (9.2-11.7)
[2017-04-22] MEDS ORDERED: NS 250 ML ONE (10:31)
--- NOTE | 2017-04-22 12:09 | Diag Imaging Result Doc PS360 ---
EXAM: CHEST-PORTABLE HISTORY: Pic placement TECHNIQUE: AP upright portable at 1156 COMMENT: There is a left-sided PIC line with its tip in the superior vena cava. There is somewhat less of pulmonary edema present on the right but there may be more in the left para hilar region. There are apparently bilateral pleural effusions. Less fluid on the right is present on the previous study of 04/22/2017 at 0500. There may be is atelectasis of the right upper lobe which was not previously present. IMPRESSION: Right upper lobe atelectasis possibly due to mucous plug. Improved right pleural effusion. Electronically signed by Jarvis Mortensen 04/22/2017 12:06 PM
[2017-04-22] MEDS: MUCOMYST 20% INH SCH (19:14)
[2017-04-22] MEDS: DILAUDID IV PRN (19:24)
[2017-04-22] MEDS: LIPITOR PO SCH (20:20)
[2017-04-22] MEDS ORDERED: DOPAMINE 400 MG/D5W 400 MG/500 ML IV.SOLN IV SCH (21:29)
[2017-04-22 21:34] LABS: BLOOD TYPE ARTERIAL; SAMPLE BLOOD
[2017-04-22 21:35] LABS: ALLEN TEST YES; BE -2.1 mmoll (-3.0-3.0); DRAW SITE R RADIAL; METHB 0.4 % (0.0-1.5); MODALITY BI PAP; O2(CT) 15.2 mL/dL (15.0-23.0); PCO2(98.6) 52 mmHg (35-45); PO2(98.6) 64 mmHg (60-100); SAO2 94.2 % (95.0-100.0); THB 11.6 g/dL (11.5-17.4); pH(98.6) 7.29 (7.35-7.45)
[2017-04-22] MEDS: LEVAQUIN 250 MG/D5W 250 MG/50 ML IVPB IV SCH (22:16)
[2017-04-23] MEDS: DILAUDID IV PRN ×3 (01:32→12:15)
[2017-04-23] MEDS: FLAGYL 250 MG/NS 250 MG/50 ML IVPB IV SCH ×3 (02:31→17:30)
[2017-04-23] MEDS: DUONEB (A & A) INH PRN ×3 (03:17→11:44)
[2017-04-23] MEDS: CLINDAMYCIN 600 MG/NS 600 MG/50 ML IVPB IV SCH ×2 (04:09→13:26)
[2017-04-23 04:27] LABS: ALLEN TEST YES; BE -2.6 mmoll (-3.0-3.0); BLOOD TYPE ARTERIAL; DRAW SITE R RADIAL; METHB 0.5 % (0.0-1.5); MODALITY BI PAP; O2(CT) 12.6 mL/dL (15.0-23.0); SAMPLE BLOOD; SAO2 81.9 % (95.0-100.0); THB 11.1 g/dL (11.5-17.4); pH(98.6) 7.27 (7.35-7.45)
[2017-04-23 04:28] LABS: PCO2(98.6) 54 mmHg (35-45); PO2(98.6) 46 mmHg (60-100)
[2017-04-23] MEDS ORDERED: LASIX IV ONE (05:36)
[2017-04-23 05:41] LABS: BASO% 0.3 % (0.0-0.8); EOS# 0.06 X1000 (0.0-0.7); EOS% 0.3 % (0.0-10.0); HEMATOCRIT 31.6 % (37.0-47.0); HEMOGLOBIN 10.6 g/dL (12.0-16.0); IMM GRAN# 0.14 X1000 (0.0-0.04); IMM GRAN% 0.8 % (0.0-0.5); LYMPH% 9.6 % (20.5-51.1); MANUAL DIFF NEEDED? NO; MCH 35.8 PG (27-31); MCHC 33.5 g/dL (33-37); MCV 106.8 FL (81-99); MONO# 2.86 X1000 (0.11-0.59); MONO% 16.1 % (1.7-9.3); MPV 10.2 FL (7.4-10.4); NEUT% 72.9 % (42.2-75.2); PLT 196 X1000 (130-400); RBC 2.96 XMIL (4.2-5.4)
[2017-04-23 05:53] LABS: ALBUMIN 2.8 g/dL (3.5-5.0); POTASSIUM 5.9 mmol/L (3.5-5.1); TOTAL BILIRUBIN 0.37 mg/dL (0.20-1.00); TOTAL PROTEIN 6.2 g/dL (6.3-8.3)
[2017-04-23] MEDS: SYNTHROID PO SCH (06:18)
[2017-04-23] MEDS ORDERED: COREG PO SCH (06:52)
[2017-04-23] MEDS ORDERED: CLINIMIX E 4.25%-5% SOLUTION 1,000 ML IV SCH (06:52)
[2017-04-23] MEDS: NORVASC PO SCH (09:32)
--- NOTE | 2017-04-23 09:44 | PROGRESS NOTE ---
DATE: 04/23/2017 SUBJECTIVE: The patient is asleep and on the BiPAP. Patient's family including daughter and son were present and we spoke at length. Overnight the patient had a drop in blood pressure, particularly after being given some Dilaudid. Her oxygen saturation has been dropping and work of breathing is moderately increased, this according to nursing and nursing notes, as well as communications from last night. OBJECTIVE: Vital signs: 98.3, 75, 14, 98/42, mean arterial pressure of 70. The patient is on BiPAP at 100%. Pressures have been increased to 25 and 5. Respiratory: Patient's upper lobes are remarkably clear. Cardiovascular: Reveals a regular rhythm. The faint heart murmur present previously sounds a little bit harsher today. Abdomen: Bowel sounds are present. Her abdomen is soft. Extremities: Show no peripheral edema in the lower extremities. The right arm is still swollen from edema and IV infiltration. A PICC line was installed yesterday. LABORATORY: White count 17.7, hematocrit 31.6. PH 7.27, pCO2 is 54, PO2 was registered at 46 on 100%. Potassium 5.9, BUN 98, creatinine 1.3. ASSESSMENT AND PLAN: 1. In a suni discussion with the patient's family, I reiterated the statement that I made on the 1st day after admission, that the patient's condition may not be recoverable following cardiac arrest. The factors that I have cited on both occasions are age and infirmity, as well as the severity of her cardiac arrest and aspiration. The family is aware of this and have, for the most part, accepted her nonrecoverable position. At this point I think withdrawal of the respiratory support might actually be less comfortable for the patient. 2. The family and I have come to agreement that unless it was needed for the administration of medications, a feeding tube would not be within the bounds of her wishes or an appropriate treatment modality. 3. I have consulted the nephrology team in the event there was anything that they could offer that might reverse her azotemia. I discussed the case with the nurse practitioner and the doctor covering for the dispatcher motor vehicle. 4. The patient's aspiration pneumonitis continues. Her white cell count is up. She is on appropriate coverage for her right upper lobe infiltrate. This will continue. 5. The patient is in no code level 2. I will discuss transference to no code level 1 as I would hate to have further CPR applied to her. She apparently had CPR on site when she aspirated and coded at the restaurant. 6. This overall plan was discussed with the patient's family and they were in agreement. cc: Sameer Light MD
[2017-04-23] MEDS: MUCOMYST 20% INH SCH (11:44)
[2017-04-23] MEDS: ZYLOPRIM PO SCH (12:23)
[2017-04-23] MEDS ORDERED: DILAUDID IV PRN (13:06)
--- NOTE | 2017-04-23 15:59 | CONSULTATION ---
DATE OF CONSULTATION: 04/23/2017 TIME SEEN: 0810. REASON FOR ADMISSION: Respiratory cardiac arrest. REASON FOR CONSULT: Acute kidney injury with a BUN of 98. CONSULTING PHYSICIAN: Dr. Sameer Light. HISTORY OF PRESENT ILLNESS: Ms. Willams is an 86-year-old white female who is admitted to [facility] on 04/15/2017 secondary to aspiration at dinner at a restaurant. Patient subsequently had her family perform Heimlich at which time they had thought it was successful. Unfortunately, the patient continued to deteriorate. She was laid on the floor. EMS was called. They did pull another food product out at which time she was then intubated in the outpatient setting. It was noted on the monitor that she required CPR, which they performed with ROSC. She was transported to [facility]. During that period of time, she was re-intubated for airway preservation. She was transferred to ICU. She was on pressor support and was subsequently extubated within 48 hours. Patient now has aspiration pneumonia. She is requiring BiPAP. Her BUN has elevated to 98 with a creatinine of only 1.3. She is making adequate urine at this time. Her lactate is slightly elevated. Her ABGs remain poor. She is on 100% BiPAP, and is currently a DNR LEVEL 2. It appeared initially she had acute pulmonary edema and was treated with diuretic therapy. Cardiology and Pulmonology were consulted on the case and have been following. Subsequently, at this time, the patient appears to be pre-azotemic with a BUN that is elevated and we are requested to follow. She is unable to answer any information. She is mostly obtunded. She currently remains on dopamine with a Clinimix drip. Her family is currently at the bedside. They had just finished talking to Dr. Light with talks of making patient a DNR LEVEL 1. PAST MEDICAL HISTORY: From the chart, shows temporal arteritis and PMR remote history. Remote history of lupus related encephalopathy, degenerative arthritis, fibrocystic disease of breasts, hypertension, osteoporosis, hyperlipidemia, chronic right bundle branch block, bipolar disorder, and a history of alcoholism. She has a history of gout and hyperlipidemia. SOCIAL HISTORY: Patient is in an assisted living. She has family who are attentive to her care with a daughter and son who are at her bedside. She is currently a nonsmoker. She drinks alcohol regularly; amount is unknown. FAMILY HISTORY: Noncontributory. SURGICAL HISTORY: Family is unaware. CURRENT ALLERGIES: Listed in the chart are sulfa, penicillin, and narcotics. HOME MEDICATIONS: 1. Alphagan eye drops. 2. Baby aspirin. 3. Caltrate. 4. Coreg. 5. Folic acid. 6. Synthroid. 7. Tylenol. 8. Xalatan eye drops. 9. Co-Enzymes. 10. Catapres. 11. BuSpar. 12. Fosamax. 13. Multivitamins. 14. Irbesartan. 15. Isosorbide. 16. Catapres TTS patch. 17. Allopurinol. 18. Atorvastatin. 19. Amlodipine. 20. Seroquel. 21. [place]-3 fatty acid. 22. Valium. 23. Dulcolax. 24. Hydrocortisone acetate. 25. Risperdal. REVIEW OF SYSTEMS: Unable to obtain per patient. Best obtained per chart. LABORATORY DATA: Her sodium is 140, potassium 5.9, chloride 102, CO2 of 22. BUN 98, creatinine 1.3, glucose 123. Her anion gap is 16, calcium 9, albumin 2.8. White count 17.78, hemoglobin 10.6, hematocrit 31.6, platelet 196,000. Sputum cultures are negative. ProTime is 12.7 with an INR of 1.2. Lactate is 1.1. ABGs: pH 7.27, CO2 of 54, PO2 of 46, bicarb 22.5 on 100% BiPAP. Chest x-ray indicates right upper lobe infiltrates with some pleural effusions. She has had 2,263 In. She has had 1435 Out per Alberto catheter. VITAL SIGNS: Her temperature this a.m. 98.3. Blood pressure 98/42. Heart rate 75. Respirations 14. Again, on 100% BiPAP with saturations of 83%-89%. PHYSICAL EXAMINATION: General: This is an 86-year-old white female. She is currently in ICU. She appears on no sedation. She remains on 100% BiPAP. Unable to awaken, she does not open her eyes to verbal or tactile stimuli. Skin: Warm and dry. HEENT: Normocephalic, atraumatic. Conjunctiva is pale. Pupils are equal and reactive though very sluggish to reaction. Cardiovascular: She has regular rate and rhythm. She is without murmur or gallop appreciated. Lungs: Diminished breath sounds bilateral. She remains on 100% BiPAP. Abdomen: Hypo bowel sounds. Round, soft. There is no tenderness noted. Genitourinary: Alberto catheter remains in place with adequate urine out. Extremities: She has trace pretibial edema. Otherwise, no clubbing, or cyanosis. ASSESSMENT AND PLAN: 1. Acute kidney injury with elevated BUN of 98, creatinine of 1.3. The patient has had adequate urine output. It is possibly indicated that patient may have pre-azotemia secondary to BUN load from her Clinimix. She may also have complications from pulmonary perfusion secondary to being on BiPAP which is creating increased pulmonary pressures. Also, she may have an undetected gastrointestinal bleed with a lactate level of 1.1. There are no clinical indications that there should be any intervention at this time aside of checking her labs on a daily basis, checking stools for occult blood and monitoring her I's and O's. 2. Electrolytes. The patient has mild hyperkalemia. This has been treated this a.m. 3. Acidosis. The patient has mild anion gap acidosis with metabolic acidosis. There are no indications for intervention. 4. Anemia. This is stable. 5. Leukocytosis. The patient is being treated for pneumonia. She continues on Flagyl, clindamycin, and Levaquin which are all renally dosed. 6. DNR STATUS. Patient is already a DNR LEVEL 2. They have spoken with the primary care team. Son and daughter are currently talking of making changes to a DNR LEVEL [address]. We will continue to be on standby at this time. Patient remains critically ill. I would to thank you for allowing us to follow with this patient. Dictated by LEE Jung for Paul Bajwa MD cc: LEE Jung MD Timothy P. Weirich, MD MTDD
[2017-04-23 17:29] VITALS: BP 84/54
--- NOTE | 2017-04-24 12:18 | DISCHARGE SUMMARY ---
ADMISSION DATE: 04/15/2017 DISCHARGE DATE: 04/23/2017 DATE OF : 04/23/2017. DISCHARGE DIAGNOSES: 1. Aspiration pneumonitis. 2. Cardiac arrest. 3. Renal insufficiency. 4. Hypertension. HOSPITAL COURSE: This 86-year-old white female was admitted after choking on some food at a restaurant. She had a cardiac arrest there and was intubated in the field. They did CPR on her in the restaurant and her heart restarted without being shocked. She was brought to the emergency room and admitted to the ICU. Initially the patient did not have any infiltrates in the right upper lobe but developed some shortly thereafter. She had been immediately started on antibiotics and been pancultured. Unfortunately due to the age and infirmity, this acute problem was too much for her to overcome. We had many discussions with the family during her hospitalization. I initially made her a do not intubate, but okay to use medications as a DNR level 2. As her condition progressed and it became obvious that she was working to breathe and having more difficulty with blood pressure issues, we continued treatment but then made her DNR level 1. She passed on the afternoon of the and no resuscitation efforts were made. cc: Sameer Light MD
== END 2017-04-23 16:31 | disposition expired ==
LOC: ED 13:34 → ICU 15:53
PROVIDERS: ADMIT Internal Medicine; ATTEND Internal Medicine